=== PATIENT | female | born 1985 | race Caucasian/White ===

== ENCOUNTER 2017-02-14 07:38 | Inpatient (IN) | payer OTHER ==
[~2017-02-14 07:38] MED LIST: ENDOCET 5-3251 EACH PO; IBUPROFEN800 MG PO; ZANTAC150 MG PO
[2017-02-14 07:40] VITALS: BP 127/80
[2017-02-14 07:42] VITALS: BP 126/77
[2017-02-14] MEDS ORDERED: ENDOCET 5-3251 EACH PO (08:40)
[2017-02-14] MEDS ORDERED: IBUPROFEN800 MG PO (08:40)
[2017-02-14 08:45] VITALS: BP 112/76
[2017-02-14 09:55] VITALS: BP 118/73
[2017-02-14 14:32] VITALS: BP 130/81
[2017-02-14 23:42] VITALS: BP 121/75
[2017-02-15 07:34] VITALS: BP 117/83
[2017-02-15 07:47] LABS: BASOPHIL COUNT 0.1 K/uL (0-0.1); EOSINOPHIL (%) 0.9 % (0-5); EOSINOPHIL COUNT 0.1 K/uL (0-0.3); HEMATOCRIT 32.4 % (36.0-46.0); IMMATURE GRANULOCYTE (%) 0.9 % (0.0-0.7); IMMATURE GRANULOCYTE COUNT 0.1 K/uL; INSTRUMENT ABS NEUTROPHIL CT 10.4 K/uL; LYMPHOCYTE COUNT 3.2 K/uL (1.0-2.8); MCH 29.3 PG (29.0-34.0); MCV 86.4 FL (83-99); MEAN PLAT.VOLUME 11.2 uM^3 (9.5-12.4); MONOCYTE (%) 6.7 % (3-12); NEUTROPHIL COUNT 10.4 K/uL (1.8-6.4); PLATELET COUNT 230 K/uL (156-360); RBC DIS.WIDTH-CV 13.7 % (11.8-14.6); RBC DIS.WIDTH-SD 42.6 % (39-53); RED BLOOD COUNT 3.75 M/uL (3.80-5.20); WHITE BLOOD COUNT 14.9 K/uL (4.1-10.2)
[2017-02-15 15:32] VITALS: BP 123/79
[2017-02-15 23:00] VITALS: BP 107/59
[2017-02-16 07:49] VITALS: BP 124/84
[2017-02-16 15:21] VITALS: BP 124/71
== END 2017-02-16 16:20 | disposition home or self-care (01) | DRG 776 ==
LOC: LDRP-OP 07:38 → 2WEST 07:39 → LDRP-OP 03-19 13:59
PROVIDERS: Obstetrics & Gynecology
DX: Z39.0 Encounter for care and examination of mother immediately after delivery (principal)
CPT/HCPCS: 85025